=== PATIENT | female | born 1940 | race Caucasian/White ===

== ENCOUNTER → 2017-02-02 | Outpatient (CLI) | payer MEDICARE, OTHER ==
--- NOTE | 2017-02-04 11:15 | MAM ---
EXAM DESCRIPTION: 3D Screening BILATERAL : Digital Mammography. CLINICAL HISTORY: 76 years Female SCREENING . No complaints. No family history of breast cancer. Hysterectomy. HRT five or more years ago.. COMPARISON: 2-D digital screening bilateral studies 02/02/2016 and 01/20/2015. Report from prior examination also reviewed. TECHNIQUE: Bilateral CC and MLO projection full-field images, 3-D tomosynthesis digital mammographic technique. Also bilateral synthesized CC/ MLO full-field images. CAD not utilized. FINDINGS: The breast parenchymal density pattern is: Scattered areas of fibroglandular density. No skin thickening or nipple retraction bilateral solitary microcalcifications. No focal, stellate mass or density, focal asymmetry , and no suspicious microcalcifications bilaterally. Stable mammograms compared to prior studies, taking into account differences in mammographic technique IMPRESSION: BI-RADS CATEGORY: 2 - BENIGN FINDINGS. FOLLOW UP: Routine digital bilateral screening, one year interval from date Written communication explaining the IMPRESSION and follow-up, will be mailed to the patient and referring health care provider. According to the [employer], yearly mammograms are recommended starting at age 40 and continuing as long as a woman is in good health. Any breast change noted on a breast self-exam should be reported promptly to the patient's healthcare provider. Breast MRI is recommended for women with an approximately 20-25% or greater lifetime risk of breast cancer, including women with a strong family history of breast or ovarian cancer and women who have been treated for Hodgkin's disease. A negative mammographic report should not delay tissue diagnosis in patients with significant clinical history or physical findings. Extremely dense breast tissue limits the sensitivity of digital mammography. Electronically signed by: Sky Larry MD 02/04/2017 11:14 AM CDT
== END ==
LOC: MAMMO 15:05
PROVIDERS: ATTEND Family Medicine
DX: Z12.31 Encounter for screening mammogram for malignant neoplasm of breast (principal)
CPT/HCPCS: 77063; G0202

== ENCOUNTER → 2017-06-30 | Outpatient (CLI) | payer MEDICARE, OTHER | LOC: LAB.O 08:38 | PROVIDERS: ATTEND Internal Medicine Sports Medicine | DX: M06.09 Rheumatoid arthritis without rheumatoid factor, multiple sites (principal); Z13.220 Encounter for screening for lipoid disorders; Z01.89 Encounter for other specified special examinations; Z79.899 Other long term (current) drug therapy ==

== ENCOUNTER → 2018-01-18 | Outpatient (CLI) | payer MEDICARE, OTHER ==
--- NOTE | 2018-01-18 12:50 | US ---
EXAM DESCRIPTION: Venous,Lower Extremity LT CLINICAL HISTORY: EDEMA OF CALF LEFT LOWER EXTREMITY COMPARISON: None Available. TECHNIQUE: Left lower extremity venous duplex FINDINGS: Doppler evaluation of the left lower extremity deep veins was performed. Normal color flow is seen in the common femoral, superficial femoral, profunda femoral and greater saphenous veins. Normal flow is seen in the popliteal vein and veins below the knee in the calf. Normal venous compressibility and flow augmentation. IMPRESSION: Negative for evidence of deep venous thrombosis on left lower extremity venous Doppler sonogram. Electronically signed by: Kp Kruse MD 01/18/2018 12:48 PM CDT
== END ==
LOC: US 11:04
PROVIDERS: ATTEND Family Medicine
DX: R60.0 Localized edema (principal); M79.662 Pain in left lower leg

== ENCOUNTER → 2018-01-20 | Outpatient (CLI) | payer MEDICARE, OTHER ==
--- NOTE | 2018-01-23 09:14 | CT ---
EXAM DESCRIPTION: Lower Extremity w/wo Contrast CLINICAL HISTORY: 77 years Female, LT LEG EDEMA COMPARISON: None. TECHNIQUE: CT of the left lower extremity including the left hip, left femur, left knee, left tib-fib, left ankle and left foot was performed with and without IV contrast. This exam was performed according to our departmental dose-optimization program, which includes automated exposure control, adjustment of the mA and/or kV according to patient size and/or use of iterative reconstruction technique. FINDINGS: No acute fracture or malalignment is seen. No left inguinal adenopathy. There is a small left knee joint effusion with a small popliteal cyst. There is diffuse fatty replacement of the semimembranosus muscle. There is some low density fluid surrounding the medial head of the gastrocnemius muscle without soft tissue gas. No skin thickening or subcutaneous soft tissue edema. Postcontrast images show physiologic vascular enhancement without atherosclerotic vascular disease. No enhancing mass is identified. IMPRESSION: Fluid surrounding the medial head of the gastrocnemius without gastrocnemius muscle abnormality. Considering the presence of a left knee joint effusion and small popliteal cyst, findings may be related to ruptured popliteal cyst. Otherwise normal appearance of the gastric anemias muscle weighs against myositis. If clinically suspicious of acute musculotendinous injury, MRI may be helpful. Diffuse fatty infiltration of the semimembranosus muscle, nonspecific. This may be related to chronic denervation, chronic disuse or sequela of remote trauma. Electronically signed by: Gabriel Villasenor MD 01/23/2018 9:12 AM CDT
== END ==
LOC: CT 13:23
PROVIDERS: ATTEND Family Medicine
DX: Z13.89 Encounter for screening for other disorder (principal); R60.0 Localized edema; M79.605 Pain in left leg

== ENCOUNTER → 2018-02-07 | Outpatient (CLI) | payer MEDICARE, OTHER ==
--- NOTE | 2018-02-08 14:51 | MAM ---
EXAM DESCRIPTION: 3D Screening BILATERAL : Digital Mammography. CLINICAL HISTORY: 77 years Female SCREENING . No complaints. No personal or family history of breast cancer. Hysterectomy 32 years ago. Has taken HRT 5 or more years ago. Lifetime risk of developing breast cancer (Tyrer-Cuzick model)(%): 3.9. COMPARISON: Bilateral screening digital breast tomosynthesis 02/02/2017. TECHNIQUE: Bilateral CC and MLO projection full-field images, Digital tomosynthesis mammographic technique. Bilateral digital 2-D full-field MLO images. CAD not utilized. FINDINGS: The breast parenchymal density pattern is: Scattered areas of fibroglandular density. No skin thickening or nipple retraction. Right breast axillary lymph node. Bilateral solitary microcalcifications. No new focal, stellate mass or density, focal asymmetry , and no suspicious microcalcifications bilaterally. Stable mammograms compared to prior study. IMPRESSION: Benign exam. BIRAD CATEGORY: 2 BENIGN FINDINGS. RECOMMENDATIONS: FOLLOW UP: Routine digital bilateral screening, one year interval from January 2018. Written communication explaining the IMPRESSION and follow-up, will be mailed to the patient and referring health care provider. According to the [employer], yearly mammograms are recommended starting at age 40 and continuing as long as a woman is in good health. Any breast change noted on a breast self-exam should be reported promptly to the patient's healthcare provider. Breast MRI is recommended for women with an approximately 20-25% or greater lifetime risk of breast cancer, including women with a strong family history of breast or ovarian cancer and women who have been treated for Hodgkin's disease. A negative mammographic report should not delay tissue diagnosis in patients with significant clinical history or physical findings. Extremely dense breast tissue limits the sensitivity of digital mammography. Electronically signed by: Sky Larry MD 02/08/2018 2:50 PM CDT
== END ==
LOC: MAMMO 09:30
PROVIDERS: ATTEND Family Medicine
DX: Z12.31 Encounter for screening mammogram for malignant neoplasm of breast (principal)

== ENCOUNTER → 2018-11-13 | Outpatient (CLI) | payer MEDICARE, OTHER ==
--- NOTE | 2018-11-13 13:32 | RAD ---
EXAM DESCRIPTION: Pelvis CLINICAL HISTORY: 78 yearsFemale, M25.562,M25.552 COMPARISON: None. IMPRESSION: An AP view of the pelvis demonstrates no evidence of acute fracture, dislocation, or destructive osseous lesion. Moderate changes of osteoarthritis in both hips with narrowing of the joint spaces. Degenerative changes in the sacroiliac joints and pubic symphysis. Calcified phleboliths in the pelvis. Electronically signed by: Mesfin Griffith MD 11/13/2018 1:30 PM CDT
--- NOTE | 2018-11-13 13:35 | RAD ---
EXAM DESCRIPTION: Knee,Left Complete CLINICAL HISTORY: 78 yearsFemale, M25.562,M25.552 COMPARISON: CT left leg 01/20/2018 IMPRESSION: 4 views of the left knee demonstrate a chronic healed fracture in the proximal metaphysis of the fibula with cortical remodeling. No evidence of acute fracture, dislocation, or destructive osseous lesion. 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 Small suprapatellar joint effusion. If indicated, MRI may further evaluate for internal derangement. Electronically signed by: Mesfin Griffith MD 11/13/2018 1:33 PM CDT
== END ==
LOC: RAD 08:30
PROVIDERS: ATTEND Orthopaedic Surgery
DX: M17.12 Unilateral primary osteoarthritis, left knee (principal); M84.464D Pathological fracture, left fibula, subsequent encounter for fracture with routine healing

== ENCOUNTER → 2019-02-23 | Outpatient (CLI) | payer MEDICARE, OTHER ==
--- NOTE | 2019-02-27 15:33 | MAM ---
EXAM DESCRIPTION: 3D Screening BILATERAL : Digital Mammography. CLINICAL HISTORY: 78 years Female ANNUAL SCREENING . No complaints and no personal or family history of breast cancer. Menarche age 14. No childbirth. Hysterectomy 3:30 plus years ago. HRT 5 or more years ago.. Lifetime risk of developing breast cancer (Tyrer-Cuzick model)(%): 4.0. COMPARISON: Bilateral screening digital breast tomosynthesis 07 February 2018 and 02 February 2017. TECHNIQUE: Bilateral CC and MLO projection full-field images, digital tomosynthesis mammographic technique Bilateral digital 2-D full-field MLO images. CAD not available for tomosynthesis or 2-D images. FINDINGS: The breast parenchymal density pattern is: Scattered areas of fibroglandular density. No skin thickening or nipple retraction. Bilateral solitary microcalcifications. Bilateral axillary lymph nodes. No new focal, stellate mass or density, focal asymmetry , and no suspicious microcalcifications bilaterally. Stable mammograms compared to prior study. IMPRESSION: Benign exam. BIRAD CATEGORY: 2 BENIGN FINDINGS. RECOMMENDATIONS: FOLLOW UP: Routine digital bilateral mammographic screening, one year interval from February 2019. Written communication explaining the IMPRESSION and follow-up, will be mailed to the patient and referring health care provider. The FINDINGS and the FOLLOW-UP plan were reviewed in person with the patient after the examination. According to the [employer], yearly mammograms are recommended starting at age 40 and continuing as long as a woman is in good health. Any breast change noted on a breast self-exam should be reported promptly to the patient's healthcare provider. Breast MRI is recommended for women with an approximately 20-25% or greater lifetime risk of breast cancer, including women with a strong family history of breast or ovarian cancer and women who have been treated for Hodgkin's disease. A negative mammographic report should not delay tissue diagnosis in patients with significant clinical history or physical findings. Extremely dense breast tissue limits the sensitivity of digital mammography. Electronically signed by: Sky Larry MD 02/27/2019 3:32 PM [employer]
== END ==
LOC: MAMMO 12:59
PROVIDERS: ATTEND Family Medicine
DX: Z12.31 Encounter for screening mammogram for malignant neoplasm of breast (principal)

== ENCOUNTER → 2019-03-10 | Outpatient (CLI) | payer MEDICARE, OTHER | END | disposition home or self-care (01) | LOC: LAB.O 08:43 | PROVIDERS: ATTEND Family Medicine | DX: E03.9 Hypothyroidism, unspecified (principal) ==

== ENCOUNTER → 2020-02-26 | Outpatient (CLI) | payer MEDICARE, OTHER ==
--- NOTE | 2020-02-28 18:50 | MAM ---
EXAM DESCRIPTION: 3D Screening BILATERAL : Digital Mammography. CLINICAL HISTORY: 79 years Female SCREENING . No complaints and no family history of breast cancer. Menarche age 16. No childbirth. Hysterectomy age 45. HRT 5 or more years ago. Lifetime risk of developing breast cancer (Tyrer-Cuzick model)(%): 4.3. COMPARISON: Bilateral screening digital breast tomosynthesis February 2019 and January 2018. TECHNIQUE: Bilateral CC and MLO projection full-field images, digital tomosynthesis mammographic technique. Bilateral digital 2-D full-field MLO images. CAD available for 2-D images. FINDINGS: The breast parenchymal density pattern is: Scattered areas of fibroglandular density. No skin thickening or nipple retraction. No new focal, stellate mass or density, focal asymmetry , and no suspicious microcalcifications bilaterally. Stable mammograms compared to prior study. IMPRESSION: Benign exam. BIRAD CATEGORY: 2 BENIGN FINDINGS. RECOMMENDATIONS: FOLLOW UP: Routine digital bilateral mammographic screening, one year interval from February 2020. Written communication explaining the IMPRESSION and follow-up, will be mailed to the patient and referring health care provider. According to the [employer], yearly mammograms are recommended starting at age 40 and continuing as long as a woman is in good health. Any breast change noted on a breast self-exam should be reported promptly to the patient's healthcare provider. Breast MRI is recommended for women with an approximately 20-25% or greater lifetime risk of breast cancer, including women with a strong family history of breast or ovarian cancer and women who have been treated for Hodgkin's disease. A negative mammographic report should not delay tissue diagnosis in patients with significant clinical history or physical findings. Extremely dense breast tissue limits the sensitivity of digital mammography. Electronically signed by: kSy Larry MD 02/28/2020 6:48 PM [facility]
== END ==
LOC: MAMMO 14:00
PROVIDERS: ATTEND Family Medicine
DX: Z12.31 Encounter for screening mammogram for malignant neoplasm of breast (principal)

== ENCOUNTER → 2020-03-19 | Outpatient (CLI) | payer MEDICARE, OTHER ==
--- NOTE | 2020-03-21 13:16 | RAD ---
EXAM DESCRIPTION: Hip,Left 2 Views CLINICAL HISTORY: left hip pain COMPARISON: None Available. TECHNIQUE: AP/frog leg lateral FINDINGS: Two views left hip demonstrate marked hypertrophic changes involving the acetabular rim inferiorly and posterior laterally. Mild degenerative changes femoral head noted with preserved joint space. No fracture or dislocation. No destructive changes seen. The superior and inferior pubic rami intact. IMPRESSION: Moderate degenerative changes left hip without fracture or dislocation or osteonecrosis. Electronically signed by: Abdirashid Murray MD 03/21/2020 1:09 PM [facility]
== END ==
LOC: RAD 10:01
PROVIDERS: ATTEND Family Medicine
DX: M16.12 Unilateral primary osteoarthritis, left hip (principal)

== ENCOUNTER → 2020-04-28 | Outpatient (CLI) | payer MEDICARE, OTHER ==
--- NOTE | 2020-04-28 09:30 | RAD ---
Single frontal radiograph pelvis Indication: PAIN IN LEFT HIP Comparison: November 13, 2018 Impression: Moderate bilateral hip osteoarthritis with joint space narrowing, osteophyte formation, and ossification of the right hip labrum and left hip labrum. No acute fracture identified. Moderate pubic symphysis osteoarthritis. Electronically signed by: North Sams MD 04/28/2020 9:29 AM [facility]
== END ==
LOC: RAD 08:55
PROVIDERS: ATTEND Orthopaedic Surgery
DX: M16.12 Unilateral primary osteoarthritis, left hip (principal)

== ENCOUNTER → 2020-05-23 | Outpatient (CLI) | payer MEDICARE, OTHER ==
--- NOTE | 2020-05-24 12:03 | US ---
EXAM DESCRIPTION: Gall Bladder: ULTRASOUND. CLINICAL HISTORY: NAUSEA COMPARISON: None. TECHNIQUE: Transabdominal scanning: Gaffney-scale and Doppler modes. FINDINGS: Gallbladder: normal size, shape, echogenicity; no intraluminal stones or sludge. No fluid around the gallbladder. No wall thickening. 1.5 mm. Tender with transducer pressure. Common bile duct: caliber 3.2 mm within normal limits. Liver: normal echogenicity; contour liver capsule smooth where seen. No fluid around the liver. Intrahepatic biliary ducts normal caliber. Doppler hepatopedal flow portal vein.. Normal caliber portal vein:. 6 mm. Long axis right lobe 13.1 cm Pancreas: normal size Normal echogenicity. Duct not seen. Aorta: 1.9 cm normal caliber. Right kidney: long axis is 7.5 cm; volume 77.4 mL. Cortical thickness 3.5 mm. Normal echogenicity. No echogenic stones; no hydronephrosis. IMPRESSION: 1. Normal gallbladder sonography but tenderness with pressure on the overlying abdominal wall. Common bile duct normal caliber. 2. Liver and pancreas are unremarkable. 3. Right kidney with cortical thinning but normal echogenicity. Possibly related to aging. Aorta normal caliber. Electronically signed by: Sky Larry MD 05/24/2020 12:01 PM [facility]
== END ==
LOC: US 07:59
PROVIDERS: ATTEND Surgery
DX: R11.0 Nausea (principal); R10.819 Abdominal tenderness, unspecified site; N28.9 Disorder of kidney and ureter, unspecified

== ENCOUNTER 2020-05-29 05:38 | Day surgery (SDC) | payer MEDICARE, OTHER ==
[2020-05-29] MEDS ORDERED: LACTATED RINGERS 1,000 ML ONE (06:55)
[2020-05-29] MEDS ORDERED: PROPOFOL 200 MG/20 ML VIAL IV ONE (07:00)
[2020-05-29] MEDS ORDERED: LIDOCAINE 1% 10 ML VIAL INJ ONE (07:00)
[2020-05-29] MEDS ORDERED: LACTATED RINGERS 1,000 ML IVS ONE ×2 (07:45)
[2020-05-29] MEDS ORDERED: fentaNYL CITRATE INJ 50 MCG/ML 2 ML AMP ONE (08:08)
--- NOTE | 2020-05-29 09:01 | OP ---
DATE OF PROCEDURE: 05/29/20 PREOPERATIVE DIAGNOSIS: 1. Dysphagia. POSTOPERATIVE DIAGNOSIS: 1. Mild gastritis. PROCEDURE: 1. EGD. SURGEON: Cade Sotelo MD ANESTHESIA: General. FINDINGS: Pharynx had some mucus and fluid, but no obvious abnormalities. Cords appeared normal. Esophagus was normal. No evidence of reflux. Stomach showed mild gastritis. PROCEDURE: The patient was in lateral position. General anesthesia was induced. Bite block in place. The scope was inserted. We examined the posterior pharynx. There was some mucus in the area, but no obvious abnormalities. We easily intubated the esophagus down to the third portion of the duodenum. The duodenum appeared normal. Upon withdrawal, there was evidence of possible mild gastritis. Biopsy was taken. Retroflexion revealed normal body and fundus with no hiatal hernia and complete exam showed no evidence of ulcers or other abnormalities. Upon withdrawal, the esophageal surface again appeared normal. Upon withdrawal, we did suction some mucus out of the pharynx, again, otherwise normal. She was awakened and taken to Recovery to be discharged. We will go over biopsy results and make further recommendations for evaluation of the dysphagia. #[id number] cc: Sky Rollins MD [facility]
[2020-05-29 09:34] VITALS: BP 120/61; TEMP 97.5; O2SAT 95
== END 2020-05-29 09:24 | disposition home or self-care (01) ==
LOC: AMB 05:38
PROVIDERS: ATTEND Surgery
DX: K29.70 Gastritis, unspecified, without bleeding (principal); K29.50 Unspecified chronic gastritis without bleeding; K21.9 Gastro-esophageal reflux disease without esophagitis; G40.909 Epilepsy, unspecified, not intractable, without status epilepticus; I10 Essential (primary) hypertension; E78.00 Pure hypercholesterolemia, unspecified; K59.00 Constipation, unspecified; Z87.891 Personal history of nicotine dependence; Z90.710 Acquired absence of both cervix and uterus; Z79.899 Other long term (current) drug therapy
CPT/HCPCS: 00731; 43239; 88305; J3010; J3490; J7120